=== PATIENT | male | born 1965 | race Caucasian/White ===

== ENCOUNTER → 2020-02-02 14:07 | Outpatient (BNVA) | payer OTHER, SELFPAY | PROVIDERS: PCP Internal Medicine; Referring Provider Internal Medicine; Visit Provider Hospitalist | DX: Z76.89 Persons encountering health services in other specified circumstances (principal) ==

== ENCOUNTER → 2021-02-17 14:31 | Outpatient (BNVA) | payer OTHER, SELFPAY | PROVIDERS: PCP Internal Medicine; Visit Provider Hospitalist ==

== ENCOUNTER 2023-03-08 15:28 | Outpatient (AMB) | payer BC, SELFPAY ==
[2023-03-08 15:34] VITALS: PULSE 89; O2SAT 98; BMI 28.9
--- NOTE | 2023-03-08 15:34 | A.OFFVIS_ITS ---
Intake Vital Signs 03/08/23 15:34 Height 5 ft 8 in Weight 190 lb BMI 28.9 Pulse 89 Pulse Source Pulse Oximeter Pulse Oximetry (%) 98 Oxygen Delivery Method Room Air Intake Visit Reasons: Asthma Advanced Manufacturing Engineer Required: No Allergies No Known Allergies Allergy (Verified 03/08/23 15:35) HPI HPI Comments History of Present Illness Details 03/08/2023 The patient is a 57-year-old gentleman with a known history of insomnia and also obstructive sleep apnea here for pulmonary follow-up. Ov earline the patient has been doing well. He does continue to responding well to the Lunesta and trazodone combination for his sleep. He sleeps most of the night. He does wake up rested.. He does sleep better when he sleeps on his side. EPWORTH 5/24. We did talk about positional therapies that he can consider. When he sleeps on his back he does get daytime drowsiness. He tends to sleep more on the couch in his bed because he likes to sleep on his side. He had been on CPAP in the past couple times and did not tolerated. He was wondering about hypoglossal nerve stimulators. It did not recommend that for him. Although, I explained to him the CPAP therapies have gotten quite her a more comfortable. And other alternatives such as a oral mandibular device would also be reasonable. He does state that he did have an oral mandibular device in the past but it broke and the follow-through. He will continue his positional therapy for now. He also understands that with a sleep aid least with Lunesta he should take holidays from the medication or he can be without it for just a weekend. The patient denies any retrograde amnesia or any cardiovascular changes. [facility] Medical History (Updated 03/08/23 @ 15:42 by Eloy Pringle MD) Insomnia AMADO (obstructive sleep apnea) Family History (Updated 02/04/20 @ 22:26 by Eloy Pringle MD) Other AMADO (obstructive sleep apnea) (Updated 02/17/21 @ 14:59 by Mila Sandhu Johanne) Patient Tobacco Use Status: Never used Tobacco Review of Systems Const Reports daytime sleepiness and Reports difficulty sleeping ENT Denies change in voice, Denies lip swelling, Denies mouth pain, Reports nasal congestion, Reports nasal discharge and Denies tongue swelling Card Denies chest pain GI Denies abdominal pain Musc Denies no additional complaints Neuro Denies Neuro-related abnormal movements Psych Denies no additional complaints Yonis/Lymph Denies easy bleeding and Denies lymphadenopathy Aller/Immun Denies lip swelling and Denies tongue swelling Physical Exam Vital Signs: Last Vital Signs Pulse 89 03/08/23 15:34 Pulse Ox 98 03/08/23 15:34 Oxygen Delivery Method Room Air 03/08/23 15:34 BMI result Body Mass Index 28.9 Const General: alert Neck Neck: Yes normal visual inspection, Yes full ROM and Yes no lymphadenopathy Chest Chest palpation & inspection: normal inspection of the chest Resp Auscultation: clear to auscultation bilaterally Cardio Rate: regular rate Rhythm: regular rhythm Heart sounds: S1 normal heart sound present and S2 normal heart sound present GI Palpation (GI): Soft to palpation and nontender Auscultation: normal bowel sounds Skin General skin exam: rashes and/or lesions noted Assessment & Plan Assessment & Plan (1) AMADO (obstructive sleep apnea): Code(s): G47.33 - Obstructive sleep apnea (adult) (pediatric) (2) Insomnia: Code(s): G47.00 - Insomnia, unspecified Qualifiers: Insomnia type: primary Qualified Code(s): F51.01 - Primary insomnia Plan continue Lunesta and trazodone q.h.s. consider repeating home sleep study posititional sleep therapy follow-up in 1 year Medications: Refilled eszopiclone 3 mg PO BEDTIME 30 days 30 tabs 3RF Coding Level of Care Code Est Pt Level 4 (02211) Diagnoses AMADO (obstructive sleep apnea) G47.33 Primary insomnia F51.01 Insomnia type: primary Time Spent (min) 15
== END 2023-03-08 15:46 | disposition home or self-care (01) ==
PROVIDERS: PCP Internal Medicine; Visit Provider Hospitalist
DX: G47.33 Obstructive sleep apnea (adult) (pediatric) (principal); F51.01 Primary insomnia
CPT/HCPCS: 99214

== ENCOUNTER → 2023-03-08 15:28 | Outpatient (BNVA) | payer BC, SELFPAY | PROVIDERS: PCP Internal Medicine; Visit Provider Hospitalist ==

== ENCOUNTER 2024-03-07 15:31 | Outpatient (AMB) | payer BC, SELFPAY ==
[2024-03-07 15:47] VITALS: BP 134/74; PULSE 100; O2SAT 96; BMI 31.5
--- NOTE | 2024-03-07 15:47 | A.OFFVIS_ITS ---
Vital Signs 03/07/24 15:47 Height 5 ft 8 in Weight 207 lb 3.752 oz BMI 31.5 BP 134/74 Blood Pressure Location Rt brachial Position Sitting Pulse 100 Pulse Source Pulse Oximeter Pulse Oximetry (%) 96 Oxygen Delivery Method Room Air Intake Visit Reasons: Asthma Locomotive Crane Operator Required: No Business Relationship Manager: Business Relationship Manager offered & declined Accompanied by: Self / Same As Patient Allergies No Known Allergies Allergy (Verified 03/07/24 15:51) Medication List - Last Reconciled 03/07/24 by Kacy Marroquin LPN aspirin 325 mg PO DAILY eszopiclone 3 mg PO BEDTIME 30 days flu vacc [id number] 6mos up(PF) mL IM ibuprofen 200 mg PO Q6H PRN loratadine 10 mg PO DAILY omeprazole 40 mg PO DAILY trazodone 100 mg PO BEDTIME 90 days HPI Comments Details: The patient is a 58-year-old gentleman with a known history of insomnia and also obstructive sleep apnea here for pulmonary follow-up. Overall the patient has been doing well. He does continue to responding well to the Lunesta and trazodone combination for his sleep. He sleeps most of the night. He does wake up rested.. He does sleep better when he sleeps on his side. EPWORTH 5/24. We did talk about positional therapies that he can consider. When he sleeps on his back he does get daytime drowsiness. He tends to sleep more on the couch in his bed because he likes to sleep on his side. He had been on CPAP in the past couple times and did not tolerated. He was wondering about hypoglossal nerve stimulators. It did not recommend that for him. Although, I explained to him the CPAP therapies have gotten quite her a more comfortable. And other alternatives such as a oral mandibular device would also be reasonable. He does state that he did have an oral mandibular device in the past but it broke and the follow-through. He will continue his positional therapy for now. He also understands that with a sleep aid least with Lunesta he should take holidays from the medication or he can be without it for just a weekend. The patient denies any retrograde amnesia or any cardiovascular changes. 03/07/2024 the patient is here for pulmonary follow-up visit. Overall she continues to do very well. He has been on the Lunesta and also the trazodone combination for sleep. His sleeping well and waking up rested. His [place] score is 5/24. Some point in the past he was treated for sleep apnea and also using mandibular device. But has not seen any significant need for it at this time. He sleeps well no significant snoring documented. No significant cardiovascular risk factors. He denies any adverse effects to the Lunesta. Denies any retrograde amnesia or sleepwalking. He also tolerates the trazodone well. He takes it every night. Otherwise patient is without any other complaints. He does take breaks from the medications with medication holidays. Will follow-up in a year's time. If any issues arise then he can always call and we can reassess. [facility] Medical History (Updated 03/08/23 @ 15:42 by Eloy Pringle MD) Insomnia AMADO (obstructive sleep apnea) Family History (Updated 02/04/20 @ 22:26 by Eloy Pringle MD) Other AMADO (obstructive sleep apnea) Social History Patient Tobacco Use Status: Never used Tobacco Review of Systems Const Reports daytime sleepiness and Reports difficulty sleeping ENT Denies change in voice, Denies lip swelling, Denies mouth pain, Reports nasal congestion, Reports nasal discharge and Denies tongue swelling Card Denies chest pain GI Denies abdominal pain Musc Denies no additional complaints Neuro Denies Neuro-related abnormal movements Psych Denies no additional complaints Yonis/Lymph Denies easy bleeding and Denies lymphadenopathy Aller/Immun Denies lip swelling and Denies tongue swelling Physical Exam Vital Signs: Last Vital Signs Pulse 100 03/07/24 15:47 BP 134/74 03/07/24 15:47 Pulse Ox 96 03/07/24 15:47 Oxygen Delivery Method Room Air 03/07/24 15:47 BMI result Body Mass Index 31.5 Const General: alert Neck Neck: Yes normal visual inspection, Yes full ROM and Yes no lymphadenopathy Chest Chest palpation & inspection: normal inspection of the chest Resp Auscultation: clear to auscultation bilaterally Cardio Rate: regular rate Rhythm: regular rhythm Heart sounds: S1 normal heart sound present and S2 normal heart sound present GI Palpation (GI): Soft to palpation and nontender Auscultation: normal bowel sounds Skin General skin exam: rashes and/or lesions noted Assessment & Plan Assessment & Plan (1) AMADO (obstructive sleep apnea): Code(s): G47.33 - Obstructive sleep apnea (adult) (pediatric) Category: Medical (2) Insomnia: Code(s): G47.00 - Insomnia, unspecified Category: Medical Qualifiers: Insomnia type: primary Qualified Code(s): F51.01 - Primary insomnia Plan continue Lunesta and trazodone q.h.s. consider repeating home sleep study if symptomatic posititional sleep therapy follow-up in 1 year Medications: Refilled eszopiclone 3 mg PO BEDTIME 30 tabs 3RF 30 days Coding Level of Care Code Est Pt Level 4 (48847) Diagnoses AMADO (obstructive sleep apnea) G47.33 Primary insomnia F51.01 Insomnia type: primary Time Spent (min) 16
== END 2024-03-07 16:03 | disposition home or self-care (01) ==
PROVIDERS: PCP Internal Medicine; Visit Provider Hospitalist
DX: G47.33 Obstructive sleep apnea (adult) (pediatric) (principal); F51.01 Primary insomnia
CPT/HCPCS: 99214

== ENCOUNTER 2025-02-27 15:23 | Outpatient (AMB) | payer BC, SELFPAY ==
[2025-02-27 15:25] VITALS: BP 140/90; PULSE 103; O2SAT 98; BMI 31.3
--- NOTE | 2025-02-27 15:25 | A.OFFVIS_ITS ---
Vital Signs 02/27/25 15:25 Height 5 ft 8 in Weight 206 lb 2.115 oz BMI 31.3 BP 140/90 H Blood Pressure Location Lt brachial Position Sitting Pulse 103 H Pulse Source Pulse Oximeter Pulse Oximetry (%) 98 Oxygen Delivery Method Room Air Intake Visit Reasons: Asthma Baseball Coach Required: No Accompanied by: Self / Same As Patient Allergies No Known Allergies Allergy (Verified 02/27/25 15:31) HPI Comments Details: The patient is a 59-year-old gentleman with a known history of insomnia and also obstructive sleep apnea here for pulmonary follow-up. Overall the patient has been doing well. He does continue to responding well to the Lunesta and trazodone combination for his sleep. He sleeps most of the night. He does wake up rested.. He does sleep better when he sleeps on his side. EPWORTH 5/24. We did talk about positional therapies that he can consider. When he sleeps on his back he does get daytime drowsiness. He tends to sleep more on the couch in his bed because he likes to sleep on his side. He had been on CPAP in the past couple times and did not tolerated. He was wondering about hypoglossal nerve stimulators. It did not recommend that for him. Although, I explained to him the CPAP therapies have gotten quite her a more comfortable. And other alternatives such as a oral mandibular device would also be reasonable. He does state that he did have an oral mandibular device in the past but it broke and the follow-through. He will continue his positional therapy for now. He also understands that with a sleep aid least with Lunesta he should take holidays from the medication or he can be without it for just a weekend. The patient den ies any retrograde amnesia or any cardiovascular changes. 03/07/2024 the patient is here for pulmonary follow-up visit. Overall she continues to do very well. He has been on the Lunesta and also the trazodone combination for sleep. His sleeping well and waking up rested. His [place] score is 5/24. Some point in the past he was treated for sleep apnea and also using mandibular device. But has not seen any significant need for it at this time. He sleeps well no significant snoring documented. No significant cardiovascular risk factors. He denies any adverse effects to the Lunesta. Den ies any retrograde amnesia or sleepwalking. He also tolerates the trazodone well. He takes it every night. Otherwise patient is without any other complaints. He does take breaks from the medications with medication holidays. Will follow-up in a year's time. If any issues arise then he can always call and we can reassess. 02/28/2025 the patient is here for pulmonary follow-up visit. Overall the patient has been doing okay although he had a back injury. He has been recovering. He is taking physical therapy. He did mention that he has taken about 1200 mg of ibuprofen on a daily basis for the last 6-8 weeks. We did encourage him to stop that and to talk to his primary care doctor. He will try some Tylenol. He can also take the ibuprofen as needed. He also takes a PPI. The patient has been using the trazodone for sleep. This has been affecting beneficial. He also continues with the Lunesta. He denies any side effects from the hypnotic medication. Denies any amnesia. He is tolerating well and he has taken for many years. Therefore he will call his primary care doctor to get further input about the use of NSAIDs. In the meantime he is going to continue with the sleep aids. He will follow-up in a year's time. [facility] Medical History (Updated 02/27/25 @ 22:08 by Eloy Pringle MD) Back pain Insomnia AMADO (obstructive sleep apnea) Family History (Updated 02/04/20 @ 22:26 by Eloy Pringle MD) Other AMADO (obstructive sleep apnea) Social History Patient Tobacco Use Status: Never used Tobacco Review of Systems Const Reports daytime sleepiness and Reports difficulty sleeping ENT Denies change in voice, Denies lip swelling, Denies mouth pain, Reports nasal congestion, Reports nasal discharge and Denies tongue swelling Card Denies chest pain GI Denies abdominal pain Musc Reports as per HPI and Reports back pain Neuro Denies Neuro-related abnormal movements Psych Denies no additional complaints Yonis/Lymph Denies easy bleeding and Denies lymphadenopathy Aller/Immun Denies lip swelling and Denies tongue swelling Physical Exam Vital Signs: Last Vital Signs Pulse 103 H 02/27/25 15:25 BP 140/90 H 02/27/25 15:25 Pulse Ox 98 02/27/25 15:25 Oxygen Delivery Method Room Air 02/27/25 15:25 BMI result Body Mass Index 31.3 Const General: alert Neck Neck: Yes normal visual inspection, Yes full ROM and Yes no lymphadenopathy Chest Chest palpation & inspection: normal inspection of the chest Resp Auscultation: clear to auscultation bilaterally Cardio Rate: regular rate Rhythm: regular rhythm Heart sounds: S1 normal heart sound present and S2 normal heart sound present GI Palpation (GI): Soft to palpation and nontender Auscultation: normal bowel sounds Skin General skin exam: rashes and/or lesions noted Assessment & Plan Assessment & Plan (1) AMADO (obstructive sleep apnea): Code(s): G47.33 - Obstructive sleep apnea (adult) (pediatric) Category: Medical (2) Insomnia: Code(s): G47.00 - Insomnia, unspecified Category: Medical Qualifiers: Insomnia type: primary Qualified Code(s): F51.01 - Primary insomnia (3) Back pain: Code(s): M54.9 - Dorsalgia, unspecified Category: Medical Plan continue Lunesta and trazodone q.h.s. consider repeating home sleep study if symptomatic posititional sleep therapy Recommend to only take NSAIDS as needed and to discuss with PCP follow-up in 1 year Medications: Refilled eszopiclone 3 mg PO BEDTIME 30 tabs 3RF 30 days Coding Level of Care Code Est Pt Level 4 (23668) Diagnoses AMADO (obstructive sleep apnea) G47.33 Primary insomnia F51.01 Insomnia type: primary Back pain M54.9 Time Spent (min) 16
--- OUTSIDE RECORDS SUMMARY | 2025-02-28 13:11 | XMS_ITS | Data Portability ---
Author Organization [place] [facility] [address] [place] Address [address] [place] [address] Assessment Encounter Date Assessment Date Assessment LastModified by Organization Details LastModified Time 01/08/2025 01/08/2025 HPI 59-year-old male presents to the office today for evaluation of acute, resolving low back pain without radiculopathy. He reports onset approximately 2 months ago, estimates 8-25 when he was loading and unloading things in his truck at the [facility]. He presented to [facility] on 01/02/2025 and was treated with ES Tylenol, 600 mg ibuprofen twice daily and cyclobenzaprine with excellent relief. he rates his pain a 1 out of 10 today. He also is set up to start physical therapy tomorrow. He reports some radiation into the right glutes for about the first week, however this has since subsided. He denies radicular symptoms today. Denies saddle anesthesia. Denies bowel or bladder incontinence. Denies fevers, chills, or unexplained weight loss. Radiographs obtained at the [facility] urgent care demonstrate L5-S1 spondylosis, flattening of the natural curvature. No spondylolisthesis well-maintained vertebral body height EXAM Constitutional: appears well developed, in no acute distress. Respiratory: no respiratory distress Cardiovascular: Palpable pedal pulses bilaterally. Musculoskeletal: Normal gait Back: Inspection of the thoracolumbar spine is unremarkable. No deformity noted. Nontender to palpation over midline thoracolumbar spine or paraspinal musculature. Nontender to palpation over b/l SI joints. Neurologic: Sensation grossly intact to light touch in bilateral lower extremities. 5/5 strength with hip flexion, knee flexion/extension, dorsi/plantar flexion, and EHL bilaterally. Non-tender, no palpable masses bilaterally. Negative straight leg raise bilaterally, Negative Femoral stretch bilaterally. Able to toe raise and heel walk bilaterally Normal tone in all 4 extremities. Negative Gramajo s bilaterally. Negative Clonus bilaterally. Skin: skin intact PLAN 59-year-old male with largely improving acute mechanical low back pain. I have recommended he start physical therapy as instructed. He can start to taper off the NSAIDs and muscle relaxer and take as needed. He will follow-up if symptoms recur. Patient was seen and evaluated by Paige Judd PA-C in indirect conjunction with Tom Hernandez MD. He agrees with history, physical examination, tests/diagnostic imaging, and treatment plan. [email or web address] Not available 01/08/2025 16:26:50 Plan of Treatment Reminders Order Date Submit Date Provider Last Modified By Organization Details Last Modified Time Details Appointments None record ed. Lab None record ed. Referral None record ed. Procedures None record ed. Surgeries None record ed. Imaging None record ed. Medication Orders None record ed. Patient TargetsNo targets recorded. Patient InstructionsNo instructions recorded. Reason for Referral None Reported. Problems Name Problem SNOMED Code Status Onset Date Resolution Date Notes Provider Name and Address Organization Details Recorded Time Acute low back pain [id number] Active 025 PAIGE JUDD PA-C [address], [place], [address] , [place] [facility] 01/08/2025 16:27:04 Problem Notes None recorded. Medical Equipment None Reported. Allergies No known drug allergies Medications Name Sig Start Date Stop Date Status Note LastModified by Organization Details LastModified Time aspirin 325 mg tablet 650 mg as needed by oral route. 001 active Not Available Not Available Not Avai lable trazodone 100 mg tablet 100 mg every day by oral route. 008 active Not Available Not Available Not Avai lable ibuprofen 200 mg tablet 400 mg as needed by oral route. 001 active Not Available Not Available Not Avai lable loratadine 10 mg tablet 10 mg twice a day by oral route. 002 active Not Available Not Available Not Avai lable eszopiclone 3 mg tablet 3 mg every day by oral route. 008 active Not Available Not Available Not Avai lable Lunesta active Not Available Not Avail able Not Available omeprazole 20 mg delayed release,disin tegrating tablet 40 mg every day by oral route. 017 active Not Available Not Available Not Avai lable Vitals None Recorded Social History None recorded. Functional Status Question Answer Note LastModified by Organizat ion Details LastModified Time Do you use any illicit or recreational drugs? Yes [email or web address] Information not available 01/08/2025 Do you or have you ever used any other forms of tobacco or nicotine? No [email or web address] Information not available 01/08/2025 What is your level of alcohol consumption? Heavy 25 drinks/wk [email or web address] Information not available 01/08/2025 Are you currently employed? Yes [email or web address] Information not available 01/08/2025 Mental Status None recorded. Family History Relationship Description Onset Age of this Age Resolved Age Notes LastModified by Organization Details LastModified Time Father History of cancer of unknown primary site [email or web address] Not available 15:25:32 Mother Hypercholest erolemia [email or web address] Not available 2024 15:25:38 Medical History Condition Response Coronary Artery Disease N Gout N Hyperthyroidism N Blood Transfusion N MRSA N Emphysema N Depression N COPD N Hypothyroidism N Pacemaker N Vascular Disease N Gastrointestinal Disease N Anxiety Disorder N Autoimmune disease N Arthritis Y Cancer N Stroke N High Cholesterol Y Neurologic Disorder N Liver Disease N Organ Transplant N Arrhythmia N Rheumatoid Arthritis N Fibromyalgia N Kidney Disease N Allergies/Hayfever Y Adverse Reaction to Anesthesia N Thyroid Problems N Anemia N Brain Injury N Heart Attack (AL) N Osteopenia N Diabetes N Bleeding Disorder N Seizures/Epilepsy N AIDS/HIV N Congestive Heart Failure (CHF) N Asthma N Amputation N Reflux/GERD Y Sleep Apnea Y Hepatitis Y Aneurysm N Heart Disease N Pulmonary Embolism N Hypertension N Osteoporosis N Past Encounters Encounter ID Performer Location Encounter Start Date Encounter Closed Date Diagnosis/Indication Diagnosis SNOMED-CT Code Diagnosis ICD10 Code Diagnosis IMO Codes Diagnosis Note [id number] TIMOTHY KRUEGER [address] [place] [phone] 01/08/2025 14:48:49 01/08/2025 15:44:28 Acute low back pain [id number] M54.50 [id number] Health Concerns Section Related Observation LastModified by Organization Detai ls LastModified Time None Recorded Concern Status LastModified by Organization Details LastModified Time None Recorded Advance Directives Directive None Recorded Payers Insurance Date Sequence Insurance Name Policy Number Policy Rizvi Covered Member ID Rizvi Member ID Guarantor Name 01/09/2025 1 [place] [id number] Romain Chadwick [id number] oRmain Chadwick Notes Date Note Type Note Provider Name and Address Organization Details Recorded Time 01/08/2025 text/html ROS as noted in the HPI PAIGE JUDD PA-C [address], [place], [address], [place] [facility], 01/08/2025 16:27:14
--- OUTSIDE RECORDS SUMMARY | 2025-02-28 13:11 | XMS_ITS | Continuity of Care Document ---
Author Organization [place] [facility] [place] Address [address] [place] [address] Assessment Encounter Date Assessment Date Assessment LastModified by Organization Details LastModified Time 01/08/2025 01/08/2025 HPI 59-year-old male presents to the office today for evaluation of acute, resolving low back pain without radiculopathy. He reports onset approximately 2 months ago, estimates 8-25 when he was loading and unloading things in his truck at the [facility]. He presented to [facility] on 01/02/2025 and was treated [...] unexplained weight loss. Radiographs obtained at the [facility] demonstrate L5-S1 spondylosis, flattening of [...] Details Recorded Time Acute low back pain [id number] Active 025 PAIGE JUDD PA-C [address], [place], [address] , [place] [facility] [place] 01/08/2025 16:27:04 Problem Notes None recorded. [...] use any illicit or recreational drugs? Yes Information not available 01/08/2025 Do you or have you ever used any other forms of tobacco or nicotine? No [email or web address] Information not available 01/08/2025 What is your level of alcohol consumption? Heavy 25 drinks/wk [email or web address] Information not available 01/08/2025 Are you currently employed? Yes [email or web address] Information not available 01/08/2025 Mental Status None recorded. Family History Relationship Description Onset Age of this Age Resolved Age Notes LastModified by Organization Details LastModified Time Father History of cancer of unknown primary site [email or web address] Not available 15:25:32 Mother Hypercholest erolemia [email or web address] Not available 2024 15:25:38 Medical History Condition Response Coronary Artery Disease N Gout N Hyperthyroidism N Blood Transfusion N MRSA N Emphysema N Depression N COPD N Hypothyroidism N Pacemaker N Vascular Disease N Gastrointestinal Disease N Anxiety Disorder N Autoimmune disease N Arthritis Y Cancer N Stroke N High Cholesterol Y Neurologic Disorder N Liver Disease N Organ Transplant N Rheumatoid Arthritis N Arrhythmia N Fibromyalgia N Kidney Disease N Allergies/Hayfever Y Adverse Reaction to Anesthesia N Thyroid Problems N Anemia N Brain Injury N Heart Attack ([place]) N Osteopenia N Diabetes N Bleeding Disorder [...] ICD10 Code Diagnosis IMO Codes Diagnosis Note [id number] TIMOTHY KRUEGER [address] [place] [address] 01/08/2025 14:48:49 01/08/2025 15:44:28 Acute low back pain [id number] M54.50 [id number] Health Concerns Section Related Observation LastModified by Organization Detai ls LastModified Time None Recorded Concern Status LastModified by Organization Details LastModified Time None Recorded Payers Encounter Date Sequence Insurance Name Policy Number Policy Rizvi Covered Member ID Rizvi Member ID Guarantor Name 01/08/2025 1 [employer] [id number] Romain Chadwick [id number] Romain Chadwick Notes Date Note Type Note Provider Name and Address Organization Details Recorded Time 01/08/2025 text/html ROS as noted in the HPI PAIGE JUDD PA-C [address], [place], [address], [place] [facility] [place], 01/08/2025 16:27:14
== END 2025-02-27 16:02 | disposition home or self-care (01) ==
LOC: HO.HPS 15:24
PROVIDERS: PCP Internal Medicine; Visit Provider Hospitalist
DX: G47.33 Obstructive sleep apnea (adult) (pediatric) (principal); F51.01 Primary insomnia; M54.9 Dorsalgia, unspecified
CPT/HCPCS: 99214